=== PATIENT | male | born 1965 | race Two or more races ===

== ENCOUNTER 2024-07-30 21:12 | Inpatient (IN) | payer OTHER ==
[~2024-07-30] VITALS: Ht 177.8 cm; Wt 53.1 kg
[2024-07-31] MEDS ORDERED: CYAN500T56 PO (02:13)
[2024-07-31] MEDS ORDERED: DEUT12TA PO (02:13)
[2024-07-31] MEDS ORDERED: RISP4TAB94 PO (02:13)
[2024-07-31] MEDS ORDERED: DIVA-111 PO (02:13)
[2024-07-31 02:33] LABS: COVID AG,FIA SOURCE NASAL SWAB
[2024-07-31 02:35] LABS: BASOPHILS % (AUTO) 0.6 % (0.0-2.0); HEMATOCRIT 28.4 % (41-53); HEMOGLOBIN 9.5 g/dL (13.5-17.5); LYMPHOCYTES # (AUTO) 1.1 K/uL (1.0-4.8); LYMPHOCYTES % (AUTO) 13.5 % (22.0-44.0); MEAN CORPUSCULAR HEMOGLOBIN 30.4 pg (26.0-34.0); MEAN CORPUSCULAR HGB CONC 33.4 G/dL (31.0-37.0); MEAN CORPUSCULAR VOLUME 91 fL (80-100); MONOCYTES # (AUTO) 0.8 K/uL (0.1-1.0); MONOCYTES % (AUTO) 9.4 % (2.0-9.0); NEUTROPHILS # (AUTO) 6.1 K/uL (1.8-7.7); NEUTROPHILS % (AUTO) 74.5 % (40.0-70.0); PLATELET COUNT (AUTO) 193 K/uL (150-450); RED BLOOD CELL COUNT(AUTO) 3.11 MIL/uL (4.50-5.90); RED CELL DISTRIBUTION WIDTH 14.1 % (11.5-14.5); WHITE BLOOD COUNT (AUTO) 8.2 K/uL (4.5-11.0)
[2024-07-31 02:47] LABS: ANION GAP 9 mmol/L (8-16); CALCIUM, TOTAL 8.4 mg/dL (8.8-10.5); CARBON DIOXIDE 27 mmol/L (22-29); CHLORIDE 105 mmol/L (98-107); CREATININE 0.93 mg/dL (0.60-1.30); GLOMERULAR FILTR. RATE CALC > 60 mL/min (>60); GLUCOSE,RANDOM 104 mg/dL (70-110); POTASSIUM 3.8 mmol/L (3.5-5.1); SODIUM SERUM 141 mmol/L (136-145); UREA NITROGEN, BLOOD 17 mg/dL (7-18)
[2024-07-31 02:50] LABS: SARS-COV2 (COVID) ANTIGEN,FIA Negative (Negative)
[2024-07-31 02:59] LABS: ALCOHOL, BLOOD (SERUM) < 3 mg/dL (0-10)
[2024-07-31] MEDS ORDERED: BISACODYL 10 MG RECTAL RECTAL SUPPOSITORY PR PRN (05:45)
[2024-07-31] MEDS ORDERED: MAGNESIUM HYDROXIDE SUSPENSION 30 ML UDCUP PO PRN (05:45)
[2024-07-31] MEDS ORDERED: ACETAMINOPHEN 325 MG TABLET PO PRN (05:45)
[2024-07-31] MEDS: SODIUM CHLORIDE 0.9% 1,000 ML IV ONE (06:03)
[2024-07-31] MEDS: FAMOTIDINE 20 MG TABLET PO SCH (09:00)
[2024-07-31] MEDS: DOCUSATE SODIUM 100 MG CAPSULE PO SCH (09:00)
[2024-07-31] MEDS: LORazepam 2 MG/ML VIAL IVP PRN (09:10)
[2024-07-31] MEDS: HEPARIN SODIUM,PORCINE 5,000 UNITS/ML VIAL SQ SCH (09:10)
[2024-07-31 21:20] VITALS: BP 122/89; PULSE 71; RESP 18; TEMP 97.8; O2SAT 97
[2024-08-01 05:49] VITALS: BP 157/69; PULSE 73; RESP 18; TEMP 97.7; O2SAT 97
[2024-08-01 07:55] VITALS: BP 156/87; PULSE 73; RESP 18; TEMP 98.3; O2SAT 95
[2024-08-01] MEDS: LORazepam 2 MG/ML VIAL IVP PRN (14:08)
[2024-08-01] MEDS: DEXTROSE 5%-0.45% SODIUM CHL 1,000 ML IV ONE (14:44)
[2024-08-01 15:18] VITALS: BP 157/82; PULSE 74; RESP 18; TEMP 98.3; O2SAT 97
[2024-08-01 19:29] VITALS: BP 141/98; PULSE 82; RESP 18; TEMP 98.6; O2SAT 95
[2024-08-02 04:55] VITALS: BP 123/88; PULSE 84; RESP 18; TEMP 97.6; O2SAT 96
[2024-08-02 07:51] VITALS: BP 143/92; PULSE 83; RESP 18; TEMP 97.3; O2SAT 94
[2024-08-02] MEDS ORDERED: HALOPERIDOL LACTATE 5 MG/ML VIAL IVP PRN (11:45)
[2024-08-02] MEDS ORDERED: LORazepam 2 MG/ML VIAL IVP PRN (11:45)
[2024-08-02 15:37] VITALS: BP 143/74; PULSE 81; RESP 18; TEMP 99; O2SAT 95
[2024-08-02 19:22] VITALS: BP 140/87; PULSE 81; RESP 19; TEMP 98.5; O2SAT 95
[2024-08-03 05:21] VITALS: BP 146/96; PULSE 67; RESP 19; TEMP 98; O2SAT 98
[2024-08-03 08:22] VITALS: BP 144/88; PULSE 66; RESP 19; TEMP 98; O2SAT 98
== END 2024-08-03 13:15 | DRG 42 ==
LOC: EMS 21:12 → EDH 07-31 05:50 → 6S 07-31 21:15
PROVIDERS: ADMIT Internal Medicine; ATTEND Internal Medicine
DX: G10 Huntington's disease (principal); E43 Unspecified severe protein-calorie malnutrition; F03.911 Unspecified dementia, unspecified severity, with agitation; D63.8 Anemia in other chronic diseases classified elsewhere; R62.7 Adult failure to thrive; Z20.822 Contact with and (suspected) exposure to COVID-19; Z68.1 Body mass index [BMI] 19.9 or less, adult
CPT/HCPCS: 80048; 85025; 87081; 87481; 92610; 99285; G0480; J1644; J2060; J7030